=== PATIENT | female | born 1950 | race Caucasian/White ===

== ENCOUNTER 2017-04-09 18:13 | Emergency (ER) | payer OTHER ==
--- NOTE | 2017-04-09 18:58 | XRAY Preliminary Report ---
Exam: XR Hand 3 View LT IMPRESSION: Dislocation fifth PIP joint with tiny displaced flake fracture. [facility] SITE ID: [id number]
--- NOTE | 2017-04-09 19:08 | XRAY Report ---
EXAM: LEFT HAND RADIOGRAPHY EXAM DATE: 04/09/2017 06:43 PM. CLINICAL HISTORY: 3rd and 4th fingers deformed, swollen, lacerations following a fall. COMPARISON: None. TECHNIQUE: 3 views. FINDINGS: Bones: 1 x 3 mm displaced avulsion fracture most likely off the anterior base fifth middle phalanx. Joints: Posterior dislocation fifth middle phalanx relative to the head of the fifth proximal phalanx with 8 mm overlapping of these bones. Soft Tissues: Marked edema, greatest at the fourth and fifth fingers. Small caliber ring fourth finge r without significant obscuration of the subjacent bone. IMPRESSION: Dislocation fifth PIP joint with tiny displaced flake fracture. [facility] Referring Provider Line: [phone] SITE ID: [id number]
--- NOTE | 2017-04-09 21:35 | ED Physician Documentation ---
PD HPI UPPER EXT INJURY - Stated complaint Stated Complaint: L HAND INJ - Chief complaint Chief Complaint: Ext Problem - History obtained from History obtained from: Patient - History of Present Illness Location: Left Type of injury: Fall Where injury occurred: Street Timing - onset: Today (this afternoon) Pain level now: 8 Improved by: Rest Worsened by: Moving, Palpating Associated symptoms: Swelling. No: Weakness, Numbness Similar symptoms before: Has not had sx before Recently seen: Not recently seen - Additonal information Additional information: patient is left-hand dominant. She tripped and fell while walking her dog this afternoon, fell onto outstretched hand, sustained lacerations to left 4th and 5th fingers with associated pain in those fingers. Review of Systems Skin: reports: Laceration (s) Musculoskeletal: reports: Extremity pain, Joint swelling Neurologic: denies: Focal weakness, Numbness PD PAST MEDICAL HISTORY - Past Medical History Past Medical History: Yes Cardiovascular: Hypertension Endocrine/Autoimmune: HyPOthyroidism - Present Medications Home Medications: Ambulatory Orders Medication Instructions Recorded Confirmed Citalopram [CeleXA] 20 mg PO DAILY 04/09/17 04/09/17 Clindamycin HCl 300 mg PO Q6HR 7 Days 04/09/17 HYDROcod/ACETAM 5/325 [[place] 5/325] 1 - 2 ea PO Q6H PRN #15 tablet 04/09/17 Hydrochlorothiazide 25 mg PO DAILY 04/09/17 04/09/17 Levothyroxine [Synthroid] 0.125 mcg PO DAILY 04/09/17 04/09/17 Losartan [Cozaar] 25 mg PO DAILY 04/09/17 04/09/17 Pravastatin Sodium 40 mg PO DAILY 04/09/17 04/09/17 - Allergies Allergies/Adverse Reactions: Allergies Allergy/AdvReac Type Severity Reaction Status Date / Time codeine Allergy Anaphylaxis Verified 04/09/17 18:22 Penicillins Allergy Unknown Verified 04/09/17 18:22 Sulfa (Sulfonamide Allergy Hives Verified 04/09/17 18:22 Antibiotics) - Living Situation Living Arrangement: reports: At home PD ED PE NORMAL - Vitals Vital signs reviewed: Yes - General General: Alert and oriented X 3, No acute distress, Well developed/nourished - Neuro Neuro: No motor deficit, No sensory deficit PD ED PE EXPANDED - Extremities Extremities: Deformity (left fifth PIP joint), Limited ROM MARTINA UE/Hands Visual: 1 - laceration 2 - laceration, deformity Results - Vitals Vitals: Vital Signs - 24 hr 04/09/17 04/09/17 18:18 23:27 Temperature 36.3 C L Heart Rate 88 74 Respiratory 18 18 Rate Blood Pressure 151/95 H 164/68 H O2 Saturation 99 96 Oxygen O2 Source Room air - Rads (name of study) left hand xrays Radiology: Prelim report reviewed, See rad report Procedures - Laceration (location) Finger left Length in cm: 3 (3 cm total (1.5 cm lac x 2)) Wound type: Linear Neurovascular status: Sensory intact, Motor intact, Vascular intact Tendon involvement: Tendon intact Anesthesia: Lidocaine 1%, Marcaine 0.5% Wound Preparation: Hibiclens, Irrigated copiously NS, Wound explored, To the base. No: FB identified Skin layer closure: Nylon, Interrupted, Running, Size #-0 - enter number (5-0) Other: Patient tolerated well, No complications, Neurovascular intact, Dressing applied Complexity: Simple - Reduction Body part reduced: Left, Finger (fifth PIP joint) Fracture or dislocation: Dislocation Anesthesia: Digital block, Lidocaine (enter cc) (6), Marcaine (enter cc) (6) Reduction aftercare: NV intact, Alignment improved, Patient tolerated well PD MEDICAL DECISION MAKING - ED course Complexity details: considered differential, d/w patient Departure - Departure Disposition: 01 Home, Self Care Clinical Impression: Laceration of finger, Dislocation of finger PIP joint Condition: Good Instructions: ED Dislocation Finger Redu, ED Laceration Hand Follow-Up: Jair Cary MD [Primary Care Provider] - (7-10 days for suture removal) Prescriptions: Clindamycin HCl 300 mg PO Q6HR 7 Days HYDROcod/ACETAM 5/325 [[place] 5/325] 1 - 2 ea PO Q6H PRN #15 tablet PRN Reason: Pain Discharge Date/Time: 04/09/17 23:30
[2017-04-09] MEDS ORDERED: TETANUS/DIPHTHERIA/PERTUSSIS 0.5 ML SYRINGE IM ONE ×2 (21:40→21:43)
[2017-04-09] MEDS ORDERED: BUPIVACAINE 0.5% PF 30 ML VIAL SUBQ STA (21:40)
[2017-04-09] MEDS ORDERED: LIDOCAINE 1% 2 ML VIAL ONE ×2 (21:41→22:49)
[2017-04-09] MEDS ORDERED: BUPIVACAINE 0.5% PF 30 ML VIAL ONE (21:41)
[2017-04-09] MEDS ORDERED: LIDOCAINE 1% 50 ML MDV SUBQ STA (21:41)
[2017-04-09] MEDS ORDERED: CLINDAMYCIN 150 MG CAPSULE PO STA (23:16)
[2017-04-09] MEDS ORDERED: HYDROcod/ACET 5/325 Prepack 6 PO STA (23:16)
[2017-04-09] MEDS ORDERED: CLINDAMYCIN 150 MG CAPSULE PO ONE (23:19)
[2017-04-09] MEDS ORDERED: HYDROcod/ACET 5/325 Prepack 6 PO ONE (23:19)
[2017-04-09 23:30] VITALS: BP 164/68
== END 2017-04-09 23:30 | disposition home or self-care (01) ==
LOC: ED 18:13
DX: S61.213A Laceration without foreign body of left middle finger without damage to nail, initial encounter (principal); S61.215A Laceration without foreign body of left ring finger without damage to nail, initial encounter; S63.287A Dislocation of proximal interphalangeal joint of left little finger, initial encounter; W01.198A Fall on same level from slipping, tripping and stumbling with subsequent striking against other object, initial encounter; Y93.K1 Activity, walking an animal; Y92.89 Other specified places as the place of occurrence of the external cause; Z23 Encounter for immunization; I10 Essential (primary) hypertension; E03.9 Hypothyroidism, unspecified
CPT/HCPCS: 12002; 26770; 73130; 90471; 90715; 99283; A9270

== ENCOUNTER 2018-06-28 15:41 | Outpatient (CLI) | payer MEDICARE, OTHER ==
--- NOTE | 2018-06-29 09:51 | XRAY Report ---
Reason: COUGH Procedure Date: 06/28/2018 Accession Number: [id number] / [id number] Procedure: XR - Chest 2 View X-Ray CPT Code: 10928 FULL RESULT: EXAM: CHEST RADIOGRAPHY EXAM DATE: 06/28/2018 04:08 PM. CLINICAL HISTORY: COUGH. COMPARISON: 03/12/2016. TECHNIQUE: 2 views. FINDINGS: Lungs/Pleura: No focal opacities evident. No pleural effusion. No pneumothorax. Normal volumes. Mediastinum: Heart and mediastinal contours are unremarkable. Other: Degenerative disease of the spine. IMPRESSION: No acute abnormality of the chest. [facility]
== END 2018-06-28 15:42 | disposition home or self-care (01) ==
LOC: DI 15:41
PROVIDERS: ATTEND Internal Medicine
DX: R05 Cough (principal)
CPT/HCPCS: 71046

== ENCOUNTER 2018-12-04 14:47 | Outpatient (CLI) | payer MEDICARE, OTHER ==
--- NOTE | 2018-12-04 21:22 | XRAY Report ---
Reason: PNEUMONIA, UNSPECIFIED ORGANISM Procedure Date: 12/04/2018 Accession Number: [id number] / [id number] Procedure: XR - Chest 2 View X-Ray CPT Code: 26517 FULL RESULT: EXAM: CHEST RADIOGRAPHY EXAM DATE: 12/04/2018 03:09 PM. CLINICAL HISTORY: PNEUMONIA, UNSPECIFIED ORGANISM. COMPARISON: CHEST 2 VIEW 06/28/2018 4:00 PM. TECHNIQUE: 2 views. FINDINGS: Lungs/Pleura: No focal opacities evident. No pleural effusion. No pneumothorax. Normal volumes. Mediastinum: Heart and mediastinal contours are unremarkable. Other: Multilevel degenerative disk disease, no acute bony abnormality. IMPRESSION: No acute disease. [facility]
== END 2018-12-04 14:48 | disposition home or self-care (01) ==
LOC: DI 14:47
PROVIDERS: ATTEND Specialist
DX: J18.9 Pneumonia, unspecified organism (principal)
CPT/HCPCS: 71046

== ENCOUNTER 2020-08-28 08:00 | Outpatient (CLI) | payer MEDICARE, OTHER ==
[2020-08-28 13:00] LABS: BASOPHILS # (AUTO) 0.1 10^3/uL (0.0-0.1); BASOPHILS % (AUTO) 0.9 %; EOSINOPHILS # (AUTO) 0.4 10^3/uL (0.0-0.7); EOSINOPHILS % (AUTO) 5.2 %; HGB - HEMOGLOBIN 15.3 g/dL (12.0-16.0); LYMPHOCYTES # (AUTO) 2.3 10^3/uL (1.5-3.5); LYMPHOCYTES % (AUTO) 31.2 %; MEAN CORPUSCULAR HEMOGLOBIN 30.1 pg (27.0-31.0); MEAN CORPUSCULAR HGB CONC 32.8 g/dL (32.0-36.0); MEAN CORPUSCULAR VOLUME 91.7 fL (81.0-99.0); MEAN PLATELET VOLUME 11.6 fL (7.9-10.8); MONOCYTES # (AUTO) 0.6 10^3/uL (0.0-1.0); MONOCYTES % (AUTO) 8.2 %; NEUTROPHILS % (AUTO) 54.2 %; PLT - PLATELET COUNT 262 10^3/uL (130-450); RED BLOOD COUNT 5.09 10^6/uL (4.20-5.40); RED CELL DISTRIBUTION WIDTH 12.8 % (12.0-15.0); WHITE BLOOD COUNT 7.4 x10^3/uL (4.8-10.8)
[2020-08-28 13:27] LABS: ALBUMIN 4.1 g/dL (3.2-5.5); ALBUMIN/GLOBULIN RATIO 1.4 (1.0-2.2); ALKALINE PHOSPHATASE 51 IU/L (42-121); ALT ALANINE AMINOTRANSFERASE 22 IU/L (10-60); AST ASPARTATE AMINOTRANSFERASE 22 IU/L (10-42); BILIRUBIN,TOTAL 1.5 mg/dL (0.2-1.0); BUN - BLOOD UREA NITROGEN 19 mg/dL (6-20); CALCIUM 9.4 mg/dL (8.5-10.3); CARBON DIOXIDE - CO2 28 mmol/L (21-32); CHLORIDE 104 mmol/L (101-111); CHOL/HDL RATIO 3.7 (<4.4); CHOLESTEROL 197 mg/dL; CREATININE 0.7 mg/dL (0.4-1.0); GLUCOSE 104 mg/dL (70-100); HDL CHOLESTEROL 53 mg/dL; LDL CHOLESTEROL,CALCULATED 115 mg/dL; LDL/HDL RATIO 2.2 (<4.4); SODIUM 142 mmol/L (135-145); TOTAL PROTEIN 7.1 g/dL (6.7-8.2); VLDL CHOLESTEROL 29 mg/dL
== END 2020-08-28 23:59 | disposition home or self-care (01) ==
LOC: LAB.WCP 08:00
PROVIDERS: ATTEND Physician Assistant
DX: E26.9 Hyperaldosteronism, unspecified (principal); E78.5 Hyperlipidemia, unspecified
CPT/HCPCS: 36415; 80053; 80061; 83721; 84443; 85025

== ENCOUNTER 2020-09-07 14:46 | Outpatient (CLI) | payer MEDICARE, OTHER | END 2020-09-07 14:47 | disposition home or self-care (01) | LOC: COV 14:46 | PROVIDERS: ATTEND Family Medicine | DX: Z20.828 Contact with and (suspected) exposure to other viral communicable diseases (principal) ==

== ENCOUNTER 2021-05-09 10:27 | Outpatient (CLI) | payer MEDICARE, OTHER ==
[2021-05-09 17:58] LABS: BASOPHILS # (AUTO) 0.1 10^3/uL (0.0-0.1); BASOPHILS % (AUTO) 0.9 %; EOSINOPHILS # (AUTO) 0.5 10^3/uL (0.0-0.7); EOSINOPHILS % (AUTO) 6.2 %; HCT - HEMATOCRIT 45.8 % (37.0-47.0); HGB - HEMOGLOBIN 14.8 g/dL (12.0-16.0); LYMPHOCYTES # (AUTO) 2.4 10^3/uL (1.5-3.5); LYMPHOCYTES % (AUTO) 31.9 %; MEAN CORPUSCULAR HEMOGLOBIN 30.1 pg (27.0-31.0); MEAN CORPUSCULAR HGB CONC 32.3 g/dL (32.0-36.0); MEAN CORPUSCULAR VOLUME 93.3 fL (81.0-99.0); MEAN PLATELET VOLUME 11.5 fL (7.9-10.8); MONOCYTES # (AUTO) 0.5 10^3/uL (0.0-1.0); NEUTROPHILS % (AUTO) 53.6 %; PLT - PLATELET COUNT 259 10^3/uL (130-450); RED BLOOD COUNT 4.91 10^6/uL (4.20-5.40); RED CELL DISTRIBUTION WIDTH 13.1 % (12.0-15.0); WHITE BLOOD COUNT 7.4 x10^3/uL (4.8-10.8)
[2021-05-09 18:04] LABS: BILIRUBIN,URINE NEGATIVE (NEGATIVE); GLUCOSE, URINE (UA) NEGATIVE (NEGATIVE); KETONES,URINE (UA) NEGATIVE (NEGATIVE); LEUKOCYTE ESTERASE, URINE NEGATIVE (NEGATIVE); NITRITE,URINE NEGATIVE (NEGATIVE); OCCULT BLOOD,URINE TRACE-LYSE (NEGATIVE); PROTEIN,URINE NEGATIVE (NEGATIVE); UROBILINOGEN,URINE 0.2 (NORMAL) E.U./dL (NORMAL)
[2021-05-09 18:05] LABS: CLARITY,URINE CLOUDY (CLEAR)
[2021-05-09 18:14] LABS: ALBUMIN 4.1 g/dL (3.2-5.5); ALBUMIN/GLOBULIN RATIO 1.3 (1.0-2.2); ALKALINE PHOSPHATASE 48 IU/L (42-121); ALT ALANINE AMINOTRANSFERASE 19 IU/L (10-60); AST ASPARTATE AMINOTRANSFERASE 20 IU/L (10-42); BILIRUBIN,TOTAL 1.4 mg/dL (0.2-1.0); BUN - BLOOD UREA NITROGEN 16 mg/dL (6-20); CALCIUM 9.3 mg/dL (8.5-10.3); CARBON DIOXIDE - CO2 28 mmol/L (21-32); CHLORIDE 101 mmol/L (101-111); CHOL/HDL RATIO 3.8 (<4.4); CHOLESTEROL 199 mg/dL; CREATININE 0.6 mg/dL (0.4-1.0); GFR - MDRD 99 (>89); GLUCOSE 96 mg/dL (70-100); HDL CHOLESTEROL 52 mg/dL; LDL CHOLESTEROL,CALCULATED 121 mg/dL; LDL/HDL RATIO 2.3 (<4.4); POTASSIUM 3.2 mmol/L (3.5-5.0); SODIUM 141 mmol/L (135-145); TOTAL PROTEIN 7.3 g/dL (6.7-8.2); TRIGLYCERIDES 129 mg/dL; VLDL CHOLESTEROL 26 mg/dL
[2021-05-09 18:21] LABS: AMORPHOUS SEDIMENT,UR Marked /LPF; BACTERIA,URINE Moderate /HPF (None Seen); RBC,URINE 0-5 /HPF (0-5); SQUAMOUS EPITHELIAL CELL,UR FEW Squamous (<= Few); WBC,URINE 0-3 /HPF (0-5)
[2021-05-09 18:24] LABS: THYROID STIMULATING HORMONE 0.6 uIU/mL (0.34-5.60)
[2021-05-09 18:26] LABS: FREE T4 (FREE THYROXINE) 1.42 ng/dL (0.58-1.64)
[2021-05-09 21:00] LABS: ESTIMATED AVERAGE GLUCOSE 117 mg/dL (70-100); HEMOGLOBIN A1c% 5.7 % (4.27-6.07)
== END 2021-05-09 23:59 | disposition home or self-care (01) ==
LOC: LAB.WCP 10:27
PROVIDERS: ATTEND Nurse Practitioner
DX: I10 Essential (primary) hypertension (principal); E88.81 Metabolic syndrome and other insulin resistance; E03.9 Hypothyroidism, unspecified
CPT/HCPCS: 36415; 80053; 80061; 81001; 83036; 83721; 84439; 84443; 85025; 87086

== ENCOUNTER 2021-10-22 11:36 | Outpatient (CLI) | payer MEDICARE, OTHER ==
[2021-10-22 18:24] LABS: BASOPHILS # (AUTO) 0.1 10^3/uL (0.0-0.1); BASOPHILS % (AUTO) 0.8 %; EOSINOPHILS # (AUTO) 2.2 10^3/uL (0.0-0.7); EOSINOPHILS % (AUTO) 20.3 %; HCT - HEMATOCRIT 45.3 % (37.0-47.0); HGB - HEMOGLOBIN 14.8 g/dL (12.0-16.0); LYMPHOCYTES # (AUTO) 3.2 10^3/uL (1.5-3.5); LYMPHOCYTES % (AUTO) 29.7 %; MEAN CORPUSCULAR HEMOGLOBIN 29.5 pg (27.0-31.0); MEAN CORPUSCULAR HGB CONC 32.7 g/dL (32.0-36.0); MEAN CORPUSCULAR VOLUME 90.4 fL (81.0-99.0); MEAN PLATELET VOLUME 11.5 fL (7.9-10.8); MONOCYTES # (AUTO) 0.7 10^3/uL (0.0-1.0); MONOCYTES % (AUTO) 6.8 %; NEUTROPHILS # (AUTO) 4.6 10^3/uL (1.5-6.6); PLT - PLATELET COUNT 272 10^3/uL (130-450); RED BLOOD COUNT 5.01 10^6/uL (4.20-5.40); RED CELL DISTRIBUTION WIDTH 13.1 % (12.0-15.0); WHITE BLOOD COUNT 10.9 x10^3/uL (4.8-10.8)
[2021-10-22 18:35] LABS: SLIDE REVIEW? Indicated
[2021-10-22 18:56] LABS: ALBUMIN 3.8 g/dL (3.2-5.5); ALBUMIN/GLOBULIN RATIO 1.1 (1.0-2.2); BILIRUBIN,TOTAL 1.3 mg/dL (0.2-1.0); CALCIUM 9.5 mg/dL (8.5-10.3); CREATININE 0.7 mg/dL (0.4-1.0); TOTAL PROTEIN 7.3 g/dL (6.7-8.2)
[2021-10-22 19:49] LABS: DIFFERENTIAL COMMENT MANUAL=AUTO DIFF; PLATELET ESTIMATE, MANUAL NORMAL (130-450,000) (NORMAL); PLATELET MORPHOLOGY NORMAL APPEARANCE (NORMAL); RBC MORPHOLOGY (MULTIPLE) NORMAL APPEARANCE (NORMAL)
== END 2021-10-22 11:37 | disposition home or self-care (01) ==
LOC: LAB.N 11:36
PROVIDERS: ATTEND Nurse Practitioner
DX: R05.3 Chronic cough (principal)
CPT/HCPCS: 36415; 80053; 85025

== ENCOUNTER 2021-10-22 11:42 | Outpatient (CLI) | payer MEDICARE, OTHER ==
--- NOTE | 2021-10-22 13:34 | XRAY Report ---
PROCEDURE: Chest 2 View X-Ray INDICATIONS: Chronic cough TECHNIQUE: 2 view(s) of the chest. COMPARISON: 12/04/2018 chest radiographs FINDINGS: Surgical changes and devices: None. Lungs and pleura: No pleural effusions or pneumothorax. Lungs are clear. Mediastinum: Mediastinal contours are normal. Heart size is normal. Bones and chest wall: No suspicious bony abnormalities. Soft tissues appear unremarkable. IMPRESSION: No acute cardiopulmonary process demonstrated radiographically. Reviewed by: Ibrahima Arnett MD on 10/22/2021 1:32 PM PST Approved by: Ibrahima Arnett MD on 10/22/2021 1:32 PM [facility] Station ID: [id number]
== END 2021-10-22 11:43 | disposition home or self-care (01) ==
LOC: DI.N 11:42
PROVIDERS: ATTEND Nurse Practitioner
DX: R05.3 Chronic cough (principal)
CPT/HCPCS: 36415; 80053; 85025

== ENCOUNTER 2022-02-11 10:18 | Outpatient (CLI) | payer MEDICARE, OTHER ==
--- NOTE | 2022-02-11 17:22 | XRAY Report ---
PROCEDURE: Thoracic Spine 2 View INDICATIONS: LOW BACK PX TECHNIQUE: 2 views of the thoracic spine were acquired. COMPARISON: None. FINDINGS: Bones: No fractures or dislocations. No suspicious bony lesions. 12 pairs of ribs are noted, and a ppear intact where visualized. Multilevel degenerative disc space narrowing. Small nonbridging anter ior osteophytes are present. Soft tissues: No paravertebral stripe thickening. IMPRESSION: Multilevel degenerative disc space narrowing. Reviewed by: Fatuma Euceda MD on 02/11/2022 5:21 PM PDT Approved by: Fatuma Euceda MD on 02/11/2022 5:21 PM PDT Station ID: [id number]
--- NOTE | 2022-02-11 17:23 | XRAY Report ---
PROCEDURE: Lumbar Spine 2 View INDICATIONS: LOW BACK PX TECHNIQUE: 3 views of the lumbar spine were acquired. COMPARISON: Lumbar spine 06/29/2012 FINDINGS: Bones: 5 [id number] vertebrae are present. There is multilevel trace retrolisthesis. Multileve l moderate to severe disc space narrowing is present most notable at L4-5. Multilevel nonbridging ant erior osteophytes are present. Severe foraminal narrowing is noted L4-5 and L5-S1. No vertebral body compression fractures. No suspicious bony lesions. Soft tissues: Overlying bowel gas pattern is normal. No suspicious soft tissue calcifications. IMPRESSION: Degenerative changes most severe at L4-5 and L5-S1. Reviewed by: Fatuma Euceda MD on 02/11/2022 5:22 PM PDT Approved by: Fatuma Euceda MD on 02/11/2022 5:22 PM PDT Station ID: [id number]
== END 2022-02-11 10:19 | disposition home or self-care (01) ==
LOC: DI.N 10:18
PROVIDERS: ATTEND Nurse Practitioner
DX: M51.36 Other intervertebral disc degeneration, lumbar region (principal); M51.37 Other intervertebral disc degeneration, lumbosacral region

== ENCOUNTER 2022-06-01 20:34 | Outpatient (CLI) | payer MEDICARE, OTHER | END 2022-06-01 20:35 | disposition home or self-care (01) | LOC: SC 20:34 | PROVIDERS: ATTEND Nurse Practitioner Family | DX: G47.33 Obstructive sleep apnea (adult) (pediatric) (principal); G47.61 Periodic limb movement disorder | CPT/HCPCS: 95810 ==

== ENCOUNTER 2022-06-12 13:26 | Outpatient (CLI) | payer MEDICARE, OTHER ==
--- NOTE | 2022-06-12 13:56 | SLEEP CARE CONSULTATION ---
Information from patient questionnaire entered by Angie Watson MA. I have reviewed and concur with the information entered by Angie Watson MA. This document represents the service I personally performed and the decisions made by , Karyn Ordoñez ARNP. History of Present Illness Service Date and Time: 06/12/2022 1326 Initial [place] Sleepiness Scale score: 19 Current [place] Sleepiness Scale score: 13 Additional HPI information: AURELIA MARTINEZ returns for follow up and results of the recently performed polysomnography. I explained the pathophysiology behind obstructive sleep apnea. We then spent quite a bit of time discussing different treatment options. For mild obstructive sleep apnea, surgery and oral appliance are alternatives to nasal CPAP therapy but in moderate or severe cases, nasal CPAP is the most effective and reliable treatment. Because apnea is primarily in supine position, then positional management therapy could be effective. Methods discussed such as positioning with pillows to prevent supine sleep. I reviewed the impact of weight changes on sleep apnea and strongly recommended losing weight. After some discussion, the patient opted to go with the nasal CPAP therapy. Nasal autoCPAP set at 4-15 cmH20 will be ordered with rationale explained. A manual titration study will be ordered if unable to find optimal pressure with office adjustments. I explained how CPAP machine works and what to expect when using the machine. Using CPAP every night in order to get used to it was emphasized. Patient advised to put CPAP mask on before getting into bed so as not to fall asleep without CPAP. To assist acclimation to CPAP use, it could also be used for a short time during day while reading or watching TV. The patient was instructed to call the CPAP supplier to discuss any mechanical problem that may occur. If the mask given is uncomfortable or is difficult to keep on through the night even with adjustment, contact the CPAP supplier as many will replace with another mask style if notified before 30 days. If snoring or perceives is not getting enough air or too much air from the machine, notify this office. Patient counseled not drink alcohol less than 4 hours before bedtime as it can increase snoring and apnea. Patient was cautioned about risks of drowsy driving until sleepiness symptoms resolve. Patient denies drowsy driving. Sleep Study - Results Type of Sleep Study: Polysomnography Prior sleep studies: Yes Year and Where: 2011 [facility] Polysomnography/Home Sleep Study results: IMPRESSION: The quality of the study is good. The patient had normal sleep efficiency. The sleep architecture was abnormal for sleep fragmentation and reduced amount of time spent in slow wave sleep (N3). Respiratory monitoring showed moderate obstructive sleep apnea-hypopnea (AHI = 22.5) a ssociated with frequent arousals, oxyhemoglobin desaturation and moderate hypoxia (micheal oxygen saturation of 74%) . The respiratory events occurred mainly during supine sleep (supine AHI = 32.8; non-supine = 13.36). Snore was moderate to loud in intensity. There was moderate periodic leg movement of sleep not contributing to the sleep fragmentation. Cardiac rhythm was normal sinus rhythm without significant arrhythmia. No abnormal behavior (parasomnia) observed during the night. Allergies and Home Medications Home medication list reviewed: Yes (no changes) Allergy and home medication list: Allergies codeine Allergy (Verified 04/09/17 18:22) Anaphylaxis Penicillins Allergy (Verified 04/09/17 18:22) Unknown Sulfa (Sulfonamide Antibiotics) Allergy (Verified 04/09/17 18:22) Hives Review of Systems Review of systems same as previous: Yes (no changes) Physical Exam Vital signs obtained and entered by: [facility] Blood Pressure: 140/60 (left arm) Cuff size: large Heart Rate: 76 O2 Saturation: 98 Height: 5 ft 6 in Weight: 201 lb Body Mass Index: 32.4 BMI Classification: Obese Impression and Plan 1. Obstructive Sleep Apnea-Hypopnea Syndrome, moderate, with lowest oxygen saturation of 74%. Obviously this is the cause of the patients symptoms of unrefreshed sleep, and excessive daytime sleepiness. Positive pressure therapy could benefit hypertension, anxiety, asthma and depression. As mentioned above, the patient will be started on nasal autoCPAP therapy with pressure set at 4-15 cmH2O. Compliance guidelines also reviewed. A copy of compliance guidelines will be given for reference at check out. Because the apnea is more severe supine, I instructed to avoid sleeping supine using pillow positioning until able to start CPAP use. 2. Periodic limb movement, moderate, that did not fragment patients sleep. Periodic limb movement of sleep (PLMS) is characterized by episodes of repetitive limb movements that occur during sleep and usually involve the lower limbs. The etiology is unknown. Caffeine can aggravate PLMS and should be avoided. Sleep hygiene methods can also improve sleep as well as lifestyle changes such as regular exercise. Patient was advised that no treatment is needed at this time. If symptoms increase, then further evaluation is indicated. 2. Hypoxemia, moderate, with a micheal oxygen saturation of 74% and 20.10 minutes spent under 90%. Her baseline oxygen saturation was normal with an average oxygen saturation of 92%. * Nasal auto CPAP therapy, pressure at 4-15 cm H2O. * Attempt to lose weight. * Avoid alcohol consumption near bedtime. * Avoid supine sleep until using CPAP. * The patient is again cautioned about driving until sleepiness completely resolves. * Return one month after CPAP obtained. I will assess response to therapy and compliance at that time. Counseling Topics: Spare mask, Weight loss health impact Visit Type: In Office Time Spent with Patient (minutes): 20 Provider Statement: I spent 100% of the Face to Face Visit with the patient with greater than 50% spent counseling the patient and coordination of care.
[2022-06-12 13:57] VITALS: BP 140/60
== END 2022-06-12 13:27 | disposition home or self-care (01) ==
LOC: SC 13:26
PROVIDERS: ATTEND Nurse Practitioner Family
DX: G47.33 Obstructive sleep apnea (adult) (pediatric) (principal); G47.61 Periodic limb movement disorder; R09.02 Hypoxemia; E66.9 Obesity, unspecified; Z68.32 Body mass index [BMI] 32.0-32.9, adult
CPT/HCPCS: 99213; G0463; 99212

== ENCOUNTER 2022-12-25 10:37 | Outpatient (CLI) | payer MEDICARE, OTHER ==
--- NOTE | 2022-12-25 11:33 | DEXA Report ---
PROCEDURE: Dexa Spine and/or Hip INDICATIONS: POST MENOPAUSAL TECHNIQUE: Dual energy x-ray absorptiometry (DXA) was performed on a [employer] System. Regions measur ed are the AP Spine, femoral neck, and if needed forearm. COMPARISON: None. FINDINGS: Lumbar Spine: Bone Mineral Density 1.472 g/cm/cm,T score 2.3, normal Left Femoral Neck: Bone Mineral Density 0.912 g/cm/cm, T score -0.9, normal Left Hip: Bone Mineral Density 1.012 g/cm/cm,T score 0, normal (T score greater or equal to -1.0: NORMAL) (T score from -1.1 to -2.4: OSTEOPENIA) (T score less than or equal to -2.5 to: OSTEOPOROSIS) Impression: Normal bone mineral density. Patients with diagnosis of osteoporosis or osteopenia should have regular bone mineral density assess ment. For those eligible for Medicare, routine testing is allowed once every 2 years. Testing frequ ency can be increased for patients who have rapidly progressing disease or for those who are receivin g medical therapy to restore bone mass. Reviewed by: Fatuma Euceda MD on 12/25/2022 11:32 AM PDT Approved by: Fatuma Euceda MD on 12/25/2022 11:32 AM PDT Station ID: [id number]
== END 2022-12-25 10:38 | disposition home or self-care (01) ==
LOC: DI 10:37
PROVIDERS: ATTEND Nurse Practitioner
DX: Z78.0 Asymptomatic menopausal state (principal)

== ENCOUNTER 2023-09-23 10:05 | Outpatient (CLI) | payer MEDICARE, OTHER ==
--- NOTE | 2023-09-23 10:45 | Sleep Patient Instructions ---
Sleep Center Visit Summary - Patient Visit Information Reason for Visit: Annual visit for PAP therapy - Patient Instructions Additional Instructions: You will continue with CPAP therapy with pressure set at 8-11 cmH2O. A supply prescription will be updated with your DME. We encourage you to continue to try to lose weight. Please follow up with the sleep care office in 1 year. - Clinic Information Contact: [facility] [address] [place] [address] [email or web address] T: [phone]
--- NOTE | 2023-09-23 10:49 | SLEEP CARE CONSULTATION ---
Information from patient questionnaire entered by Terra Franks. I have reviewed and concur with the information entered by Terra Franks. This document represents the service I personally performed and the decisions made by , Karyn Ordoñez ARNP. History of Present Illness Service Date and Time: 09/23/2023 1005 Previous diagnosis: Moderate, Obstructive Sleep Apnea-Hypopnea Syndrome AHI: 22.5 (in 2021) Reason for follow up: annual (LAST SEEN 08/2022) Equipment type: CPAP (RESMED Airsense 11) Equipment obtained from: [employer] ([email or web address] supplies) Mask style: Nasal Mask brand: Resmed (AirFit [id number]) Backup mask available: Yes Last cushion change: 2 weeks Prior sleep studies: Yes Year and Where: 2011 [facility] Type of Sleep Study: Polysomnography HPI additional information: AURELIA MARTINEZ was diagnosed to have moderate, AHI 22.5, obstructive sleep apnea-hypopnea syndrome and returned today for CPAP therapy annual follow-up. Sleep Study - Results Type of Sleep Study: Polysomnography Prior sleep studies: Yes Year and Where: 2011 [facility] CPAP Compliance Data - Data Reviewed with Patient Average duration of nightly device use: 6 hours 10 minutes Compliance rate %: 66 (09/22/22-09/21/23; 73% for 75/ compliant days) Current pressure setting (cmH2O): 8-11 Average residual AHI: 2.2 Central apnea: 1.1 Obstructive apnea: 0.9 Average large leak: 3.5 L/min Subjective Patient concerns: reports: mask discomfort, dry mouth, nose, throat (dry mouth; turned humidity off to reduce phlegm). denies: aerophagia, air blowing in eyes, mask leak noise, condensation in mask/hose, nasal congestion, epistaxis Observed to snore while using device: No Current pressure setting perceived as: comfortable On therapy, patient: reports: sleeping better, awakening more refreshed, being more awake and alert during the day, more rested overall. denies: drowsiness while driving Initial [place] Sleepiness Scale score: 19 Current [place] Sleepiness Scale score: 11 (09/23/23) Allergies and Home Medications Known drug allergies: Yes (as listed) Drug allergies reviewed: Yes Home medication list reviewed: Yes (no changes) Allergy and home medication list: Allergies codeine Allergy (Verified 09/22/23 09:50) Anaphylaxis Penicillins Allergy (Verified 09/22/23 09:50) Unknown Sulfa (Sulfonamide Antibiotics) Allergy (Verified 09/22/23 09:50) Hives Review of Systems Review of systems same as previous: Yes (NO CHANGE) Physical Exam Vital signs obtained and entered by: TERRA Anguiano MA Blood Pressure: 142/78 (RIGHT ARM) Cuff size: regular Heart Rate: 73 O2 Saturation: 97 Height: 5 ft 6 in Weight: 192 lb 6.4 oz Body Mass Index: 31.0 BMI Classification: Obese Impression and Plan 1. Obstructive Sleep Apnea-Hypopnea Syndrome, moderate, with good treatment compliance and good apnea control. On CPAP therapy, the patient has better sleep quality and is more rested overall. Patient has significant improvement of their sleep apnea and is satisfied with current CPAP therapy. Patient has been getting a dry mouth but she turned off her humidifier because she was getting a lot of phlegm from her sinuses. The phlegm has improved with turning the humidifier off but now she has some dry mouth. I encouraged her to try to the humidifier at his lowest setting to see if that is enough to give her enough moisture to reduce the mouth dryness. If this does not work or she has a return of the sinus issue she can try mouth moisturizers to help with her mouth dryness. Patient's apnea severity and rationale for treatment to reduce apnea, improve sleep quality and reduce cardiovascular and cerebrovascular events was reviewed. I also reviewed the benefit of consistent device use of CPAP for hypertension, depression, anxiety and asthma. 2. Obesity, unspecified. Currently patients BMI is 31. Obesity increases the risk of apnea, CPAP pressure requirements and overall health risks especially cardiovascular and diabetes. Thus patient is advised to lose weight. * Continue auto CPAP pressure at 8-11 cmH2O * Update supply prescription * Notify me if snoring with mask or feeling that the pressure is too much or too little * Attempt to lose weight * Call this office if any problems using CPAP * Return for follow up in 12 months, or sooner if concerns arise Counseling Topics: Spare mask, Weight loss health impact Prescriptions: Device supplies Follow up with Sleep Care in: 1 year Visit Type: In Office Time Spent with Patient (minutes): 22 Provider Statement: I spent 100% of the Face to Face Visit with the patient with greater than 50% spent counseling the patient and coordination of care.
[2023-09-23 10:54] VITALS: BP 142/78; O2SAT 97
== END 2023-09-23 10:06 | disposition home or self-care (01) ==
LOC: SC 10:05
PROVIDERS: ATTEND Nurse Practitioner Family
DX: G47.33 Obstructive sleep apnea (adult) (pediatric) (principal); E66.9 Obesity, unspecified; Z68.31 Body mass index [BMI] 31.0-31.9, adult
CPT/HCPCS: 99213; G0463; 99212

== ENCOUNTER 2023-11-05 10:45 | Outpatient (CLI) | payer MEDICARE, OTHER ==
--- NOTE | 2023-11-11 09:30 | Mammography Report ---
BILATERAL DIGITAL SCREENING MAMMOGRAM 3D/2D: 11/05/2023 CLINICAL: Routine screening. Comparison is made to exams dated: 11/03/2022 mammogram, 09/10/2021 mammogram, 07/31/2020 mammogram, 06/18/2018 mammogram, 06/04/2018 mammogram, and 05/21/2017 mammogram - [facility]. There are scattered areas of fibroglandular density in both breasts (category b / 25%-50% glandular t issue). No significant masses, calcifications, or other findings are seen in either breast. There has been no significant interval change. IMPRESSION: NEGATIVE There is no mammographic evidence of malignancy. A 1 year screening mammogram is recommended. Based on the Tyrer Cuzick model (a risk assessment model) the patient's lifetime risk is 5.6% and her 10 year risk is 3.6%. According to the ACR, ACS, and NCCN guidelines, an annual breast MRI exam dilan g with mammogram is recommended if the patient's lifetime risk is 20% or greater. This exam was interpreted at Station ID: [id number]. NOTE: For mammograms, a report in lay terms will be sent to the patient. Approximately 15% of breast malignancies will not be visualized mammographically. In the management of a palpable breast mass, a negative mammogram must not discourage biopsy of a clinically suspicious lesion. Electronically Signed By: Teagan March M.D., PH.D /travis:11/10/2023 21:53:54 letter sent: No_Letter ACR BI-RADS Category 1: Negative 3341F PARENCHYMAL PATTERN: (A) - The breast(s) demonstrate(s) scattered fibroglandular densities. BI-RADS CATEGORY: (1) - 1 Mammogram [id number] 1 year screening LATERALITY: (B)
== END 2023-11-05 10:46 | disposition home or self-care (01) ==
LOC: DI.N 10:45
DX: Z12.31 Encounter for screening mammogram for malignant neoplasm of breast (principal); R92.323 Mammographic fibroglandular density, bilateral breasts

== ENCOUNTER 2024-05-25 09:20 | Outpatient (CLI) | payer MEDICARE, OTHER | END 2024-05-25 09:21 | disposition home or self-care (01) | LOC: DI 09:20 | PROVIDERS: ATTEND Nurse Practitioner | DX: R01.1 Cardiac murmur, unspecified (principal) | CPT/HCPCS: 93307 ==